=== PATIENT | female | born 1990 | race Caucasian/White ===

== ENCOUNTER 2017-05-26 11:20 | Emergency (ER) | payer OTHER ==
[~2017-05-26] VITALS: Ht 167.6 cm; Wt 65.0 kg
[2017-05-26 11:23] VITALS: Ht 167.6 cm; Wt 65.0 kg
[2017-05-26] MEDS ORDERED: IBUPROFEN 600 MG TAB PO ONE (11:30)
--- NOTE | 2017-05-26 11:47 | ERD ---
ER Documentation Chief Complaint Date/Time DATE: 05/26/17 TIME: 11:45 Chief Complaint Complains of right wrist pain HPI 27-year-old female complains of right ulnar wrist pain that is achy, diffuse, worse in movement that started yesterday while she was at work. She was at the desk, typing she is right-handed. She tried applying a cream but she does not know what kind and has not taken any pain medication for this. She denies any trauma, fevers or chills. She denies any history of gout. Patient has been using a Velcro wrist splint for her pain. ROS All systems reviewed and are negative except as per history of present illness. Medications Home Meds Active Scripts Ibuprofen* (Motrin*) 600 Mg Tab, 600 MG PO Q6, #30 TAB Prov:CAR MCDONALD PA-C 05/26/17 Allergies Allergies: Coded Allergies: No Known Allergy (Unverified , 05/26/17) PMhx/Soc Medical and Surgical Hx: pt denies Medical Hx, pt denies Surgical Hx Hx Alcohol Use: No Hx Substance Use: No Hx Tobacco Use: No Smoking Status: Never smoker Physical Exam Vitals Vital Signs Date Time Temp Pulse Resp B/P Pulse Ox O2 Delivery O2 Flow Rate FiO2 05/26/17 11:23 98.1 103 20 145/87 100 Physical Exam General: Well-developed, well-nourished. The patient appears in no acute distress. HEENT: Head is normocephalic, atraumatic. No scleral icterus. Neck: Supple. Nontender. Lungs: Clear to auscultation. Normal air movement. Heart: Regular rate and rhythm. S1 and S2 are normal. No murmurs, gallops, or rubs. Abdomen: Nondistended. Extremities: Tenderness over the ulnar aspect of the right wrist, no bony deformities, full range of motion, radial, ulnar, median nerve intact. She is able to make a fist, compartments are soft. There is no wrist drop. There is no lymphatic streaking or warmth. Neurologic: Alert and oriented 3. No focal deficits. Normal speech and gait. Skin: Normal turgor. No rash or lesions. Results 24 hrs Current Medications Medications (Trade) Dose Ordered Sig/Roro Route PRN Reason Start Time Stop Time Status Last Admin Dose Admin Ibuprofen (Motrin) 600 mg ONCE ONCE PO 05/26/17 11:30 05/26/17 11:32 DC 05/26/17 11:35 DIAGNOSTIC IMAGING REPORT Patient: ZEINA QUEEN : 1990 Age: 27 Sex: F MR #: [id number] DOS: 05/26/17 1130 Ordering MD: CAR MCDONALD PA-C Location: [facility] Room/Bed: PROCEDURE: XR Right Hand. CLINICAL INDICATION: Pain TECHNIQUE: Three views of the right hand were obtained. COMPARISON: No prior studies are available for comparison. FINDINGS: There is no acute fracture or dislocation. The joint spaces are maintained. No erosive changes are present. The soft tissues are unremarkable. RPTAT: EE IMPRESSION: 1. No acute bony abnormality. .Angela Echeverria MD, MD Date Time Electronically viewed and signed by .Angela Echeverria MD, MD on 05/26/2017 12: 39 Procedures/MDM ED course: She was given ibuprofen for pain. 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 I doubt septic arthritis, gout, osteomyelitis, fracture, dislocation. X-rays are unremarkable, she will be given instructions to continue Dulcolax as needed and ibuprofen. Departure Diagnosis: Primary Impression: Pain in wrist Condition: Good CAR MCDONALD PA-C May 26, 2017 11:47
[2017-05-26] MEDS ORDERED: IBUP-1542 PO (11:48)
--- NOTE | 2017-05-26 12:34 | RADRPT ---
PROCEDURE: XR Right Hand. CLINICAL INDICATION: Pain TECHNIQUE: Three views of the right hand were obtained. COMPARISON: No prior studies are available for comparison. FINDINGS: There is no acute fracture or dislocation. The joint spaces are maintained. No erosive changes are p resent. The soft tissues are unremarkable. RPTAT: EE IMPRESSION: 1. No acute bony abnormality. .Angela Echeverria MD, MD Date Time Electronically viewed and signed by .Angela Echeverria MD, on 05/26/2017 12:39 .T/
== END 2017-05-26 12:39 | disposition home or self-care (01) ==
LOC: FTE 11:20
DX: M25.531 Pain in right wrist (principal)
CPT/HCPCS: 73110; Z7502; Z7610